=== PATIENT | female | born 1940 | race African-American/Black ===

== ENCOUNTER → 2020-05-24 | Outpatient (CLI) | payer MEDICARE, MEDICAID ==
[~2020-05-24] MED LIST: AMLO10TA80 PO; ASPI-1497 PO; ATOR20TA PO; CLOP75TA4 PO; GABA-529 PO; HYDR-523 PO; LEVO75TA7 PO; MULT-1195 PO; NAPR-681 PO; OMEP20TA2 PO; TAMO20TA4 PO
== END | disposition home or self-care (01) ==
LOC: LAB 12:00
PROVIDERS: ATTEND Obstetrics & Gynecology Obstetrics
DX: Z01.818 Encounter for other preprocedural examination (principal); Z11.59 Encounter for screening for other viral diseases
CPT/HCPCS: C9803; U0003

== ENCOUNTER 2020-05-29 05:47 | Day surgery (SDC) | payer MEDICARE, MEDICAID ==
[~2020-05-29] VITALS: Ht 160 cm; Wt 51.7 kg
[~2020-05-29 05:47] MED LIST changes: +ALBU18HF2 IH; +ALBU2.5V13 IH; +FLUT12AE3 IH; -GABA-529 PO; +GABA300C PO; -HYDR-523 PO; +IPRA3AMP9 HHN; +LEVO100T9 PO; -LEVO75TA7 PO; +MONT10TA21 PO; -MULT-1195 PO; +POTA10CA42 PO; +PRED-276 PO
[2020-05-29] MEDS ORDERED: LACTATED RINGERS 1,000 ML IV SCH (06:30)
[2020-05-29 06:43] LABS: BASOPHILS % 1.3 % (0.0-2.0); EOSINOPHILS % 2.9 % (0.0-5.0); HEMATOCRIT. 37.7 % (36.0-48.0); LYMPHOCYTES % 26.1 % (20.0-50.0); MEAN CORPUSCULAR HEMOGLOBIN 24.7 pg (28.0-32.0); MEAN CORPUSCULAR VOLUME 77.3 fL (81.0-99.0); MEAN PLATELET VOLUME 7.5 fl (7.4-10.4); MONOCYTES % 6.7 % (2.0-8.0); PLATELET 273 x1000/uL (130-400); RED BLOOD CELL COUNT 4.87 mill/uL (4.2-5.4); RED CELL DISTRIBUTION WIDTH 20.6 % (11.6-14.6)
[2020-05-29 06:49] LABS: CHLORIDE 106 mEq/L (98-107)
[2020-05-29 06:54] LABS: PARTIAL THROMBOPLASTIN TIME 26.8 sec (23.4-31.0); PROTHROMBIN TIME 10.4 sec (9.6-11.0)
[2020-05-29] MEDS ORDERED: HYDR-3280 PO (08:18)
[2020-05-29] MEDS ORDERED: FENTANYL CITRATE/PF 50MCG/ML 2ML VIAL ONE (09:16)
[2020-05-29] MEDS ORDERED: ROCURONIUM BROMIDE 10MG/ML VIAL 5ML IV ONE (09:16)
[2020-05-29] MEDS ORDERED: NEOSTIGMINE METHYLSULFATE 1MG/ML 10 ML VIAL ONE (09:16)
[2020-05-29] MEDS ORDERED: PROPOFOL 200MG/20ML VIAL IV ONE (09:17)
[2020-05-29] MEDS ORDERED: GLYCOPYRROLATE 0.2 MG/ML 2ML VIAL ONE (09:17)
[2020-05-29] MEDS ORDERED: CLINDAMYCIN 900 MG PREMIX 50 ML IV ONE (09:19)
[2020-05-29] MEDS ORDERED: ONDANSETRON HCL 4MG/2ML INJ ONE (09:53)
[2020-05-29] MEDS ORDERED: METOCLOPRAMIDE HCL 10MG/2ML VIAL ONE (09:53)
[2020-05-29] MEDS ORDERED: DIPHENHYDRAMINE 50MG/ML VIAL IV PRN (10:15)
[2020-05-29] MEDS ORDERED: FENTANYL CITRATE/PF 50MCG/ML 2ML VIAL IV PRN (10:15)
[2020-05-29] MEDS ORDERED: MEPERIDINE HCL/PF 25MG/ML CPJ IV PRN (10:15)
[2020-05-29] MEDS ORDERED: ACETAMINOPHEN 650MG SUPP PR PRN (10:30)
== END 2020-05-29 12:45 | disposition home or self-care (01) ==
LOC: OR 05:47
PROVIDERS: ATTEND Obstetrics & Gynecology Obstetrics
DX: N95.0 Postmenopausal bleeding (principal); N84.0 Polyp of corpus uteri; N81.4 Uterovaginal prolapse, unspecified; J44.9 Chronic obstructive pulmonary disease, unspecified; I10 Essential (primary) hypertension; E03.9 Hypothyroidism, unspecified; M19.90 Unspecified osteoarthritis, unspecified site; C50.919 Malignant neoplasm of unspecified site of unspecified female breast; Z88.1 Allergy status to other antibiotic agents; Z88.2 Allergy status to sulfonamides; Z88.8 Allergy status to other drugs, medicaments and biological substances; Z79.899 Other long term (current) drug therapy; Z98.890 Other specified postprocedural states
CPT/HCPCS: 36415; 58558; 80048; 85025; 85610; 85730; 88305; J2405; J2704; J2710; J2765; J3010; J3490

== ENCOUNTER → 2021-04-07 | Outpatient (CLI) | payer MEDICARE, MEDICAID ==
[~2021-04-07] MED LIST changes: -ALBU2.5V13 IH; -ATOR20TA PO; -CLOP75TA4 PO; -FLUT12AE3 IH; +HYDR-4350 PO; -MONT10TA21 PO
== END | disposition home or self-care (01) ==
LOC: LAB 10:43
PROVIDERS: ATTEND Obstetrics & Gynecology Obstetrics
DX: Z01.812 Encounter for preprocedural laboratory examination (principal); Z20.822 Contact with and (suspected) exposure to COVID-19
CPT/HCPCS: 87426

== ENCOUNTER → 2021-09-17 | Day surgery (SDC) | payer MEDICARE, MEDICAID ==
[~2021-09-17] VITALS: Ht 157.5 cm; Wt 54.4 kg
[~2021-09-17] MED LIST changes: +LACTATED RINGERS 1,000 ML IV SCH
[2021-09-17 06:46] LABS: BASOPHILS % 0.5 % (0.0-2.0); EOSINOPHILS % 2.2 % (0.0-5.0); HEMOGLOBIN. 12.2 g/dL (12.0-16.0); LYMPHOCYTES % 20.7 % (20.0-50.0); MEAN CORPUSCULAR HEMOGLOBIN 25.7 pg (28.0-32.0); MEAN CORPUSCULAR VOLUME 82.2 fL (81.0-99.0); MEAN PLATELET VOLUME 7.8 fl (7.4-10.4); NEUTROPHILS % 66.6 % (40.0-76.0); PLATELET 378 x1000/uL (130-400); RED BLOOD CELL COUNT 4.74 mill/uL (4.2-5.4); RED CELL DISTRIBUTION WIDTH 16.9 % (11.6-14.6)
[2021-09-17 07:02] LABS: PARTIAL THROMBOPLASTIN TIME 26.9 sec (23.4-31.0); PROTHROMBIN TIME 10.3 sec (9.6-11.0)
== END | disposition home or self-care (01) ==
LOC: OR 05:57
PROVIDERS: ATTEND Obstetrics & Gynecology Obstetrics
DX: N95.0 Postmenopausal bleeding (principal); I10 Essential (primary) hypertension; I25.10 Atherosclerotic heart disease of native coronary artery without angina pectoris; E03.9 Hypothyroidism, unspecified; J44.9 Chronic obstructive pulmonary disease, unspecified; F17.210 Nicotine dependence, cigarettes, uncomplicated; Z79.82 Long term (current) use of aspirin; Z79.899 Other long term (current) drug therapy; Z85.3 Personal history of malignant neoplasm of breast; Z88.1 Allergy status to other antibiotic agents; Z88.2 Allergy status to sulfonamides; Z98.890 Other specified postprocedural states; Z20.822 Contact with and (suspected) exposure to COVID-19
CPT/HCPCS: 36415; 58558; 80048; 85025; 85610; 85730; 87426; 88305; 93005; J0690; J1100; J2250; J2370; J2405; J2704; J3010; J3490

== ENCOUNTER 2022-03-19 16:47 | Inpatient (IN) | payer MEDICARE, MEDICAID ==
[~2022-03-19] VITALS: Ht 160 cm; Wt 63.1 kg
[~2022-03-19 16:47] MED LIST changes: -LACTATED RINGERS 1,000 ML IV SCH; -TAMO20TA4 PO
[2022-03-19 17:54] LABS: BASOPHILS % 1.2 % (0.0-2.0); EOSINOPHILS % 2.4 % (0.0-5.0); HEMATOCRIT. 36.2 % (36.0-48.0); HEMOGLOBIN. 11.1 g/dL (12.0-16.0); MEAN CORPUSCULAR HEMOGLOBIN 25.6 pg (28.0-32.0); MEAN CORPUSCULAR VOLUME 83.8 fL (81.0-99.0); MEAN PLATELET VOLUME 7.7 fl (7.4-10.4); MONOCYTES % 7.4 % (2.0-8.0); PLATELET 409 x1000/uL (130-400); RED BLOOD CELL COUNT 4.31 mill/uL (4.2-5.4); RED CELL DISTRIBUTION WIDTH 18.4 % (11.6-14.6)
[2022-03-19] MEDS ORDERED: ASPIRIN 325MG EC TABLET PO NR (18:00)
[2022-03-19 18:01] LABS: CHLORIDE 108 mEq/L (98-107)
[2022-03-19 18:10] LABS: ETHANOL BLOOD < 10 mg/dL
[2022-03-19] MEDS ORDERED: ENOXAPARIN 60MG/0.6ML SYR SUBCUT NR (18:30)
[2022-03-19] MEDS ORDERED: SODIUM CHLORIDE 0.9% 500 ML IV ONE (19:00)
[2022-03-19 19:11] LABS: BG BASE EXCESS 3.7 mmol/L (-2.0-2.0); BG CARBOXYHEMOGLOBIN 2.5 % (0.5-1.5); BG DEOXYHEMOGLOBIN 4.1 % (0.0-5.0); BG FRACTION INSPIRED OXYGEN 44; BG HCO3 ACT 31.5 mmol/L (22.0-26.0); BG METHEMOGLOBIN 0.3 % (0.0-1.5); BG OXYGEN SATURATION 95.8 % (92.0-98.5); BG OXYHEMOGLOBIN 93.1 % (94.0-97.0); BG PCO2 64.5 mmHg (35.0-45.0); BG PH 7.307 (7.350-7.450); BG PO2 87.5 mmHg (75.0-100.0); BG SAMPLE SITE RIGHT RADIAL; BG TOTAL HEMOGLOBIN 11.6 g/dL (12.0-18.0); BG VENT MODE NASAL CANNULA
[2022-03-19] MEDS ORDERED: IOHEXOL-350 100 ML BOTTLE ONE (19:49)
[2022-03-19] MEDS ORDERED: ALBUTEROL (0.083%) 2.5MG/3ML NEB HHN STA (19:52)
[2022-03-19] MEDS ORDERED: METHYLPREDNISOLONE SOD SUCC 125 MG/2 ML VIAL IV STA (19:52)
[2022-03-19] MEDS ORDERED: IPRATROPIUM BROMIDE (0.02%) 0.5MG/2.5ML NEB HHN STA (19:52)
[2022-03-19] MEDS ORDERED: DOXYCYCLINE HYCLATE 100 MG/VIAL IV ONE (20:00)
[2022-03-19] MEDS ORDERED: MAGNESIUM 2 G PREMIX 50 ML IV ONE ×2 (20:00→23:00)
[2022-03-19] MEDS ORDERED: DOXYCYCLINE 100MG in DEXTROSE 5% WATER 100ML IV NR (20:15)
[2022-03-19 22:42] LABS: BG DEOXYHEMOGLOBIN 6.6 % (0.0-5.0); BG FRACTION INSPIRED OXYGEN 28; BG HCO3 ACT 31.9 mmol/L (22.0-26.0); BG METHEMOGLOBIN 0.3 % (0.0-1.5); BG OXYGEN SATURATION 93.2 % (92.0-98.5); BG OXYHEMOGLOBIN 91.1 % (94.0-97.0); BG PCO2 81.3 mmHg (35.0-45.0); BG PH 7.211 (7.350-7.450); BG PO2 78.1 mmHg (75.0-100.0); BG SAMPLE SITE RIGHT RADIAL; BG TOTAL HEMOGLOBIN 11.7 g/dL (12.0-18.0); BG VENT MODE RESUS BAG
[2022-03-19] MEDS ORDERED: ALBUTEROL (0.083%) 2.5MG/3ML NEB HHN ONE (23:00)
[2022-03-20] VITALS (7 sets, daily range): BP systolic 97–122; BP diastolic 58–66
[2022-03-20] MEDS: AMPICILLIN SOD/SULBACTAM NA 1.5 G in SODIUM CHLORIDE 0.9% 50 ML IV SCH ×2 (01:00→02:00)
[2022-03-20 01:08] LABS: BG BASE EXCESS 2.8 mmol/L (-2.0-2.0); BG CARBOXYHEMOGLOBIN 1.4 % (0.5-1.5); BG DEOXYHEMOGLOBIN 5.7 % (0.0-5.0); BG FRACTION INSPIRED OXYGEN 50; BG HCO3 ACT 31.2 mmol/L (22.0-26.0); BG METHEMOGLOBIN 0.2 % (0.0-1.5); BG OXYGEN SATURATION 94.2 % (92.0-98.5); BG OXYHEMOGLOBIN 92.7 % (94.0-97.0); BG PCO2 68.6 mmHg (35.0-45.0); BG PH 7.275 (7.350-7.450); BG PO2 78.4 mmHg (75.0-100.0); BG SAMPLE SITE RIGHT RADIAL; BG TOTAL HEMOGLOBIN 11.3 g/dL (12.0-18.0); BG VENT MODE MASK - BIPAP
[2022-03-20] MEDS ORDERED: CLONIDINE 0.1MG TABLET PO PRN (10:30)
[2022-03-20] MEDS ORDERED: ONDANSETRON HCL 4MG/2ML INJ IV PRN (10:30)
[2022-03-20] MEDS ORDERED: LORAZEPAM 0.5MG TABLET PO PRN (10:30)
[2022-03-20] MEDS ORDERED: MAGNESIUM/ALUMINUM HYDROXIDE/SIMETHICONE 30ML UDC PO PRN (10:30)
[2022-03-20] MEDS ORDERED: ACETAMINOPHEN 650MG SUPP PR PRN (10:30)
[2022-03-20] MEDS ORDERED: ACETAMINOPHEN 325MG TABLET PO PRN (10:30)
[2022-03-20] MEDS ORDERED: DOCUSATE SODIUM 100MG CAPSULE PO PRN (10:30)
[2022-03-20] MEDS ORDERED: IPRATROPIUM/ALBUTEROL 0.5-3(2.5)MG/3ML NEB NEB PRN (10:30)
[2022-03-20] MEDS ORDERED: GUAIFENESIN 200MG/10ML SUGAR FREE UDC PO PRN (10:30)
[2022-03-20] MEDS ORDERED: DIPHENHYDRAMINE 50MG/ML VIAL IV PRN (10:30)
[2022-03-20] MEDS ORDERED: HYDROCODONE/ACETAMINOPHEN 5/325MG TABLET PO PRN (10:30)
[2022-03-20] MEDS ORDERED: NA PHOS,M-B/NA PHOS,DI-BA ENEMA 118ML PR PRN (10:30)
[2022-03-20 11:32] LABS: BG BASE EXCESS 1.8 mmol/L (-2.0-2.0); BG CARBOXYHEMOGLOBIN 0.6 % (0.5-1.5); BG DEOXYHEMOGLOBIN 2.2 % (0.0-5.0); BG FRACTION INSPIRED OXYGEN 50; BG HCO3 ACT 29.1 mmol/L (22.0-26.0); BG METHEMOGLOBIN 0.2 % (0.0-1.5); BG OXYGEN SATURATION 97.8 % (92.0-98.5); BG PCO2 59.4 mmHg (35.0-45.0); BG PH 7.308 (7.350-7.450); BG SAMPLE SITE RIGHT RADIAL; BG TOTAL HEMOGLOBIN 11.4 g/dL (12.0-18.0); BG VENT MODE MASK - BIPAP
[2022-03-20] MEDS ORDERED: NALOXONE HCL 0.4MG/ML VIAL IV PRN (13:00)
[2022-03-20] MEDS ORDERED: MIRT-111 PO (13:29)
[2022-03-20] MEDS ORDERED: LIP40 PO (13:29)
[2022-03-20] MEDS ORDERED: DYZ PO (13:29)
[2022-03-20] MEDS ORDERED: MEGE40TA5 PO (13:29)
[2022-03-20] MEDS: PIPERACILLIN/TAZOBACTAM 3.375 G in DEXTROSE 5% WATER 50 ML IV SCH ×2 (14:40→21:41)
[2022-03-20] MEDS: FAMOTIDINE 20MG/2ML VIAL IV SCH (14:41)
[2022-03-20] MEDS: METHYLPREDNISOLONE SOD SUCC 40 MG/ML VIAL IV SCH ×2 (14:41→18:13)
[2022-03-20] MEDS: ENOXAPARIN 30MG/0.3ML SYR SUBCUT SCH (14:41)
[2022-03-20] MEDS: IPRATROPIUM/ALBUTEROL 0.5-3(2.5)MG/3ML NEB NEB SCH ×2 (15:52→21:39)
[2022-03-20 20:07] LABS: HEMATOCRIT. 33.5 % (36.0-48.0); HEMOGLOBIN. 10.4 g/dL (12.0-16.0); MEAN CORPUSCULAR HEMOGLOBIN 25.9 pg (28.0-32.0); MEAN PLATELET VOLUME 7.7 fl (7.4-10.4); PLATELET 392 x1000/uL (130-400); RED BLOOD CELL COUNT 4.04 mill/uL (4.2-5.4); RED CELL DISTRIBUTION WIDTH 18.5 % (11.6-14.6)
[2022-03-20 20:14] LABS: PROTHROMBIN TIME 10.8 sec (9.6-11.0)
[2022-03-20 20:22] LABS: CREATINE KINASE MB FRACTION 1.2 ng/mL (0.5-3.6)
[2022-03-20 21:40] LABS: PLATELET ESTIMATE NORMAL
[2022-03-20] MEDS: AMLODIPINE 5MG TABLET PO SCH (21:40)
[2022-03-21] VITALS (10 sets, daily range): BP systolic 104–154; BP diastolic 54–81
[2022-03-21 00:34] LABS: CREATINE KINASE 113 IU/L (26-192); CREATINE KINASE MB FRACTION < 1.0 ng/mL (0.5-3.6)
[2022-03-21] MEDS: METHYLPREDNISOLONE SOD SUCC 40 MG/ML VIAL IV SCH ×3 (02:25→22:01)
[2022-03-21] MEDS: IPRATROPIUM/ALBUTEROL 0.5-3(2.5)MG/3ML NEB NEB SCH ×4 (04:02→20:31)
[2022-03-21] MEDS: PIPERACILLIN/TAZOBACTAM 3.375 G in DEXTROSE 5% WATER 50 ML IV SCH ×3 (05:32→21:55)
[2022-03-21 07:12] LABS: HEMATOCRIT. 34.2 % (36.0-48.0); HEMOGLOBIN. 10.9 g/dL (12.0-16.0); MEAN CORPUSCULAR HEMOGLOBIN 26.2 pg (28.0-32.0); MEAN CORPUSCULAR VOLUME 81.7 fL (81.0-99.0); MEAN PLATELET VOLUME 8.1 fl (7.4-10.4); PLATELET 402 x1000/uL (130-400); RED BLOOD CELL COUNT 4.18 mill/uL (4.2-5.4); RED CELL DISTRIBUTION WIDTH 18.7 % (11.6-14.6)
[2022-03-21 07:45] LABS: CHLORIDE 105 mEq/L (98-107)
[2022-03-21] MEDS: ASPIRIN 81MG EC TABLET PO SCH (08:17)
[2022-03-21] MEDS: AMLODIPINE 5MG TABLET PO SCH ×2 (08:17→21:55)
[2022-03-21] MEDS: FAMOTIDINE 20MG/2ML VIAL IV SCH (08:17)
[2022-03-21 09:44] LABS: BG BASE EXCESS -0.3 mmol/L (-2.0-2.0); BG CARBOXYHEMOGLOBIN 0.3 % (0.5-1.5); BG DEOXYHEMOGLOBIN 7.1 % (0.0-5.0); BG FRACTION INSPIRED OXYGEN 40; BG HCO3 ACT 23.7 mmol/L (22.0-26.0); BG METHEMOGLOBIN 0.3 % (0.0-1.5); BG OXYGEN SATURATION 92.9 % (92.0-98.5); BG OXYHEMOGLOBIN 92.3 % (94.0-97.0); BG PCO2 36.5 mmHg (35.0-45.0); BG PH 7.431 (7.350-7.450); BG PO2 64.1 mmHg (75.0-100.0); BG SAMPLE SITE RIGHT RADIAL; BG TOTAL HEMOGLOBIN 11.7 g/dL (12.0-18.0); BG VENT MODE NASAL CANNULA
[2022-03-21] MEDS: ENOXAPARIN 30MG/0.3ML SYR SUBCUT SCH (10:51)
[2022-03-21] MEDS: LEVOTHYROXINE SODIUM 50MCG TABLET PO SCH (10:52)
[2022-03-21] MEDS: NICOTINE 7MG PATCH TD SCH (11:09)
[2022-03-21 11:12] LABS: T4 FREE 0.56 ng/dL (0.76-1.46)
[2022-03-21 16:02] LABS: NUCLEATED RED BLOOD CELLS 3 /100 WBC
[2022-03-21 16:03] LABS: PLATELET ESTIMATE SLIGHTLY INCREASED
[2022-03-22] VITALS (7 sets, daily range): BP systolic 125–146; BP diastolic 40–73
[2022-03-22] MEDS: IPRATROPIUM/ALBUTEROL 0.5-3(2.5)MG/3ML NEB NEB SCH ×4 (02:32→20:34)
[2022-03-22] MEDS: PIPERACILLIN/TAZOBACTAM 3.375 G in DEXTROSE 5% WATER 50 ML IV SCH ×3 (05:00→20:53)
[2022-03-22] MEDS ORDERED: LIDOCAINE HCL/PF 1% 10 MG/ML 5ML VIAL ONE (08:24)
[2022-03-22] MEDS: LEVOTHYROXINE SODIUM 50MCG TABLET PO SCH (09:15)
[2022-03-22] MEDS: ASPIRIN 81MG EC TABLET PO SCH (09:15)
[2022-03-22] MEDS: AMLODIPINE 5MG TABLET PO SCH ×2 (09:24→20:53)
[2022-03-22] MEDS: NICOTINE 7MG PATCH TD SCH (09:25)
[2022-03-22] MEDS: ENOXAPARIN 30MG/0.3ML SYR SUBCUT SCH (11:11)
[2022-03-22] MEDS: METHYLPREDNISOLONE SOD SUCC 40 MG/ML VIAL IV SCH (11:19)
[2022-03-22] MEDS: FAMOTIDINE 20MG/2ML VIAL IV SCH (11:20)
[2022-03-22 15:28] LABS: BG BASE EXCESS 2.5 mmol/L (-2.0-2.0); BG CARBOXYHEMOGLOBIN 0.5 % (0.5-1.5); BG DEOXYHEMOGLOBIN 7.3 % (0.0-5.0); BG FRACTION INSPIRED OXYGEN 40; BG HCO3 ACT 26.2 mmol/L (22.0-26.0); BG METHEMOGLOBIN 0.3 % (0.0-1.5); BG OXYGEN SATURATION 92.6 % (92.0-98.5); BG OXYHEMOGLOBIN 91.9 % (94.0-97.0); BG PCO2 37.4 mmHg (35.0-45.0); BG PH 7.463 (7.350-7.450); BG PO2 64.5 mmHg (75.0-100.0); BG SAMPLE SITE RIGHT BRACHIAL; BG TOTAL HEMOGLOBIN 12.1 g/dL (12.0-18.0); BG VENT MODE NASAL CANNULA
[2022-03-22 16:30] LABS: HEMATOCRIT. 39.4 % (36.0-48.0); HEMOGLOBIN. 12.2 g/dL (12.0-16.0); MEAN CORPUSCULAR HEMOGLOBIN 25.7 pg (28.0-32.0); MEAN CORPUSCULAR VOLUME 82.9 fL (81.0-99.0); MEAN PLATELET VOLUME 7.9 fl (7.4-10.4); PLATELET 414 x1000/uL (130-400); RED BLOOD CELL COUNT 4.75 mill/uL (4.2-5.4); RED CELL DISTRIBUTION WIDTH 18.4 % (11.6-14.6)
[2022-03-22 18:24] LABS: PLATELET ESTIMATE INCREASED
[2022-03-23] VITALS: BP 119/70
[2022-03-23] MEDS: METHYLPREDNISOLONE SOD SUCC 40 MG/ML VIAL IV SCH ×3 (00:28→21:10)
[2022-03-23] MEDS: IPRATROPIUM/ALBUTEROL 0.5-3(2.5)MG/3ML NEB NEB SCH ×4 (02:00→21:15)
[2022-03-23 04:00] VITALS: BP 135/63
[2022-03-23] MEDS: PIPERACILLIN/TAZOBACTAM 3.375 G in DEXTROSE 5% WATER 50 ML IV SCH ×3 (05:27→21:11)
[2022-03-23 06:46] LABS: HEMOGLOBIN. 11.7 g/dL (12.0-16.0); MEAN CORPUSCULAR HEMOGLOBIN 25.9 pg (28.0-32.0); MEAN CORPUSCULAR VOLUME 79.9 fL (81.0-99.0); PLATELET 412 x1000/uL (130-400)
[2022-03-23] MEDS: LEVOTHYROXINE SODIUM 50MCG TABLET PO SCH (07:30)
[2022-03-23 08:00] VITALS: BP 115/72
[2022-03-23] MEDS: AMLODIPINE 5MG TABLET PO SCH ×2 (08:40→21:11)
[2022-03-23] MEDS: FAMOTIDINE 20MG/2ML VIAL IV SCH (08:40)
[2022-03-23] MEDS: NICOTINE 7MG PATCH TD SCH (08:40)
[2022-03-23] MEDS: ASPIRIN 81MG EC TABLET PO SCH (08:40)
[2022-03-23] MEDS: ENOXAPARIN 30MG/0.3ML SYR SUBCUT SCH (10:54)
[2022-03-23 12:00] VITALS: BP 121/73
[2022-03-23 16:00] VITALS: BP 158/109
[2022-03-23 20:00] VITALS: BP 123/78
[2022-03-24] VITALS: BP 124/70
[2022-03-24] MEDS: IPRATROPIUM/ALBUTEROL 0.5-3(2.5)MG/3ML NEB NEB SCH ×2 (00:53→09:03)
[2022-03-24 04:00] VITALS: BP 132/75
[2022-03-24] MEDS: PIPERACILLIN/TAZOBACTAM 3.375 G in DEXTROSE 5% WATER 50 ML IV SCH (05:40)
[2022-03-24 06:27] LABS: BASOPHILS % 0.1 % (0.0-2.0); HEMATOCRIT. 38.5 % (36.0-48.0); HEMOGLOBIN. 12.2 g/dL (12.0-16.0); LYMPHOCYTES % 7.8 % (20.0-50.0); MEAN CORPUSCULAR HEMOGLOBIN 25.6 pg (28.0-32.0); MEAN CORPUSCULAR VOLUME 80.9 fL (81.0-99.0); MEAN PLATELET VOLUME 7.8 fl (7.4-10.4); MONOCYTES % 6.4 % (2.0-8.0); NEUTROPHILS % 85.7 % (40.0-76.0); PLATELET 407 x1000/uL (130-400); RED BLOOD CELL COUNT 4.75 mill/uL (4.2-5.4); RED CELL DISTRIBUTION WIDTH 18.1 % (11.6-14.6)
[2022-03-24 06:32] LABS: CHLORIDE 106 mEq/L (98-107)
[2022-03-24 08:00] VITALS: BP 130/70
[2022-03-24] MEDS: LEVOTHYROXINE SODIUM 50MCG TABLET PO SCH (08:40)
[2022-03-24] MEDS: ASPIRIN 81MG EC TABLET PO SCH (08:40)
[2022-03-24] MEDS: FAMOTIDINE 20MG/2ML VIAL IV SCH (08:40)
[2022-03-24] MEDS: NICOTINE 7MG PATCH TD SCH (08:40)
[2022-03-24] MEDS: AMLODIPINE 5MG TABLET PO SCH (08:40)
[2022-03-24] MEDS: METHYLPREDNISOLONE SOD SUCC 40 MG/ML VIAL IV SCH (11:24)
[2022-03-24] MEDS: ENOXAPARIN 30MG/0.3ML SYR SUBCUT SCH (11:24)
[2022-03-24 12:00] VITALS: BP 120/77
[2022-03-24 12:35] VITALS: BP 120/77
[2022-03-24 21:38] LABS: PLATELET ESTIMATE INCREASED
[2022-03-25] MEDS ORDERED: ENOXAPARIN 40MG/0.4ML SYR SUBCUT SCH (09:00)
== END 2022-03-24 16:01 | DRG 189 ==
LOC: ER 16:47 → EDBEDREQ 19:38 → EDBEDREQTM 19:38 → EDBEDREQ 20:13 → EDBEDREQTM 20:13 → 5EST 23:50 → EDBEDREQTM 23:53 → EDBEDREQ 23:53 → EDBEDREQSVC 23:53 → ENRESERV 03-20 04:37 → CANRESERV 03-20 04:37 → ENRESERV 03-20 08:28
PROVIDERS: ADMIT Internal Medicine; ATTEND Internal Medicine
PROC: 5A09357 Assistance with Respiratory Ventilation, Less than 24 Consecutive Hours, Continuous Positive Airway Pressure (ICD-10-PCS; principal; 2022-03-20)
PROC: 02HV33Z Insertion of Infusion Device into Superior Vena Cava, Percutaneous Approach (ICD-10-PCS; 2022-03-22)
PROC: B548ZZA Ultrasonography of Superior Vena Cava, Guidance (ICD-10-PCS; 2022-03-22)
DX: J96.02 Acute respiratory failure with hypercapnia (principal); I21.4 Non-ST elevation (NSTEMI) myocardial infarction; G93.41 Metabolic encephalopathy; E87.2 Acidosis; J44.1 Chronic obstructive pulmonary disease with (acute) exacerbation; J84.9 Interstitial pulmonary disease, unspecified; J98.11 Atelectasis; J96.01 Acute respiratory failure with hypoxia; Z20.822 Contact with and (suspected) exposure to COVID-19; E78.5 Hyperlipidemia, unspecified; I10 Essential (primary) hypertension; I27.20 Pulmonary hypertension, unspecified; R32 Unspecified urinary incontinence; R13.10 Dysphagia, unspecified; E03.9 Hypothyroidism, unspecified; E78.00 Pure hypercholesterolemia, unspecified; I73.9 Peripheral vascular disease, unspecified; I25.10 Atherosclerotic heart disease of native coronary artery without angina pectoris; F32.A Depression, unspecified; F17.200 Nicotine dependence, unspecified, uncomplicated; Z79.890 Hormone replacement therapy; Z98.62 Peripheral vascular angioplasty status; Z99.81 Dependence on supplemental oxygen; Z79.82 Long term (current) use of aspirin; Z79.899 Other long term (current) drug therapy; Z88.1 Allergy status to other antibiotic agents; Z85.3 Personal history of malignant neoplasm of breast; Z86.79 Personal history of other diseases of the circulatory system; Z90.12 Acquired absence of left breast and nipple; Z88.2 Allergy status to sulfonamides
CPT/HCPCS: 36415; 36573; 36600; 70496; 70498; 70551; 71045; 71275; 80048; 80053; 80320; 82375; 82550; 82553; 82805; 82962; 83605; 84145; 84439; 84443; 84481; 84484; 85025; 87426; 87804; 93005; 93306; 93970; 94640; 94660; 97162; 99291; C1725; C1893; C9803; J0295; J1650; J2543; J2920; J2930; J3475; J3490; J7060; Q9967; G0480

== ENCOUNTER 2022-06-26 15:33 | Inpatient (IN) | payer MEDICARE, MEDICAID ==
[~2022-06-26] VITALS: Ht 167.6 cm; Wt 62.2 kg
[~2022-06-26 15:33] MED LIST changes: -ALBU18HF2 IH; +DYZ PO; -IPRA3AMP9 HHN; +LIP40 PO; +MEGE40TA5 PO; +MIRT-111 PO; -NAPR-681 PO; -OMEP20TA2 PO; +OMEP20TA23 PO; -POTA10CA42 PO; -PRED-276 PO
[2022-06-26 16:24] LABS: BG BASE EXCESS 8.1 mmol/L (-2.0-2.0); BG CARBOXYHEMOGLOBIN 2.8 % (0.5-1.5); BG DEOXYHEMOGLOBIN 1.7 % (0.0-5.0); BG FRACTION INSPIRED OXYGEN 36; BG HCO3 ACT 37.6 mmol/L (22.0-26.0); BG METHEMOGLOBIN 0.2 % (0.0-1.5); BG OXYGEN SATURATION 98.2 % (92.0-98.5); BG OXYHEMOGLOBIN 95.3 % (94.0-97.0); BG PCO2 82.6 mmHg (35.0-45.0); BG PH 7.276 (7.350-7.450); BG PO2 144.8 mmHg (75.0-100.0); BG SAMPLE SITE RIGHT RADIAL; BG TOTAL HEMOGLOBIN 12.1 g/dL (12.0-18.0); BG VENT MODE NASAL CANNULA
[2022-06-26 16:24] LABS: CHLORIDE 97 mEq/L (98-107)
[2022-06-26 16:29] LABS: BASOPHILS % 0.8 % (0.0-2.0); EOSINOPHILS % 3.1 % (0.0-5.0); HEMATOCRIT. 37.5 % (36.0-48.0); HEMOGLOBIN. 11.8 g/dL (12.0-16.0); LYMPHOCYTES % 25.1 % (20.0-50.0); MEAN CORPUSCULAR VOLUME 88.7 fL (81.0-99.0); MEAN PLATELET VOLUME 7.5 fl (7.4-10.4); MONOCYTES % 8.2 % (2.0-8.0); NEUTROPHILS % 62.8 % (40.0-76.0); PLATELET 311 x1000/uL (130-400); RED BLOOD CELL COUNT 4.22 mill/uL (4.2-5.4)
[2022-06-26] MEDS ORDERED: ALBUTEROL (0.5%) 2.5MG/0.5ML NEB HHN ONE (16:30)
[2022-06-26] MEDS ORDERED: METHYLPREDNISOLONE SOD SUCC 125 MG/2 ML VIAL IV ONE (16:30)
[2022-06-26 16:35] LABS: ETHANOL BLOOD < 10 mg/dL
[2022-06-26 17:07] LABS: *AMPHETAMINES SCREEN URINE NEGATIVE (NEGATIVE); *BARBITURATES SCREEN URINE NEGATIVE (NEGATIVE); *BENZODIAZEPINES SCREEN URINE NEGATIVE (NEGATIVE); *COCAINE SCREEN URINE NEGATIVE (NEGATIVE); CANNABINOID URINE SCREEN NEGATIVE (NEGATIVE); METHADONE URINE SCREEN NEGATIVE (NEGATIVE); OPIATES URINE SCREEN PRESUMTIVE POSITIVE (NEGATIVE); PHENCYCLIDINE URINE SCREEN NEGATIVE (NEGATIVE); PLATELET ESTIMATE NORMAL
[2022-06-26 19:09] LABS: BG BASE EXCESS 8.3 mmol/L (-2.0-2.0); BG CARBOXYHEMOGLOBIN 2.5 % (0.5-1.5); BG DEOXYHEMOGLOBIN 7.7 % (0.0-5.0); BG FRACTION INSPIRED OXYGEN 40; BG METHEMOGLOBIN 0.3 % (0.0-1.5); BG OXYGEN SATURATION 92.1 % (92.0-98.5); BG OXYHEMOGLOBIN 89.5 % (94.0-97.0); BG PCO2 75.1 mmHg (35.0-45.0); BG PO2 70.1 mmHg (75.0-100.0); BG SAMPLE SITE RIGHT RADIAL; BG VENT MODE MASK - BIPAP
[2022-06-26] MEDS ORDERED: AZTREONAM 2 GM in DEXT 5% WATER 100 ML IV SCH (21:00)
[2022-06-26 22:10] VITALS: BP 106/61
[2022-06-26] MEDS ORDERED: ACETAMINOPHEN 325MG TABLET PO PRN (23:30)
[2022-06-27] VITALS (9 sets, daily range): BP systolic 111–168; BP diastolic 51–80
[2022-06-27] MEDS ORDERED: MIRTAZAPINE 30MG TABLET PO SCH
[2022-06-27] MEDS: OMEPRAZOLE 20MG CAPSULE EXTENDED RELEASE PO SCH ×3 (00:15→21:00)
[2022-06-27] MEDS: AZTREONAM 1 G in DEXTROSE 5% WATER 50 ML IV SCH ×3 (03:47→16:25)
[2022-06-27] MEDS: IPRATROPIUM/ALBUTEROL 0.5-3(2.5)MG/3ML NEB HHN SCH ×4 (04:52→20:18)
[2022-06-27] MEDS: GABAPENTIN 300MG CAPSULE PO SCH ×3 (06:09→21:01)
[2022-06-27] MEDS ORDERED: LEVOTHYROXINE SODIUM 100MCG TABLET PO SCH (06:40)
[2022-06-27 08:17] LABS: BASOPHILS % 0.3 % (0.0-2.0); HEMATOCRIT. 35.1 % (36.0-48.0); HEMOGLOBIN. 10.9 g/dL (12.0-16.0); LYMPHOCYTES % 14.1 % (20.0-50.0); MEAN CORPUSCULAR HEMOGLOBIN 27.8 pg (28.0-32.0); MEAN CORPUSCULAR VOLUME 89.4 fL (81.0-99.0); MEAN PLATELET VOLUME 7.8 fl (7.4-10.4); MONOCYTES % 2.6 % (2.0-8.0); PLATELET 275 x1000/uL (130-400); RED BLOOD CELL COUNT 3.92 mill/uL (4.2-5.4); RED CELL DISTRIBUTION WIDTH 22.3 % (11.6-14.6)
[2022-06-27] MEDS: MEGESTROL ACETATE 400 MG/10 ML UDC PO SCH ×2 (08:29→21:00)
[2022-06-27] MEDS: ENOXAPARIN 40MG/0.4ML SYR SUBCUT SCH (08:30)
[2022-06-27] MEDS ORDERED: ASPIRIN 81MG TABLET PO SCH (09:00)
[2022-06-27] MEDS ORDERED: AZTREONAM 1 G in DEXTROSE 5% WATER 50 ML IV SCH (12:15)
[2022-06-27] MEDS: METHYLPREDNISOLONE SOD SUCC 40 MG/ML VIAL IV SCH ×2 (15:13→21:02)
[2022-06-27] MEDS ORDERED: SODIUM POLYSTYRENE SULFONATE 15 G/60 ML BOT PO NR (20:00)
[2022-06-27] MEDS: ATORVASTATIN CALCIUM 40MG TABLET PO SCH (21:01)
[2022-06-27] MEDS: MIRTAZAPINE 15MG TABLET PO SCH (21:01)
[2022-06-28] VITALS (12 sets, daily range): BP systolic 110–135; BP diastolic 53–78
[2022-06-28] MEDS: AZTREONAM 1 G in DEXTROSE 5% WATER 50 ML IV SCH ×4 (00:10→23:13)
[2022-06-28] MEDS: IPRATROPIUM/ALBUTEROL 0.5-3(2.5)MG/3ML NEB HHN SCH ×6 (00:15→20:18)
[2022-06-28] MEDS: METHYLPREDNISOLONE SOD SUCC 40 MG/ML VIAL IV SCH ×3 (05:02→21:44)
[2022-06-28 06:38] LABS: T4 FREE 0.54 ng/dL (0.76-1.46)
[2022-06-28 06:56] LABS: HEMOGLOBIN. 10.5 g/dL (12.0-16.0); MEAN CORPUSCULAR HEMOGLOBIN 27.3 pg (28.0-32.0); MEAN CORPUSCULAR VOLUME 88.8 fL (81.0-99.0); MEAN PLATELET VOLUME 8.1 fl (7.4-10.4); PLATELET 285 x1000/uL (130-400); RED BLOOD CELL COUNT 3.83 mill/uL (4.2-5.4); RED CELL DISTRIBUTION WIDTH 21.5 % (11.6-14.6)
[2022-06-28] MEDS: OMEPRAZOLE 20MG CAPSULE EXTENDED RELEASE PO SCH ×2 (08:36→08:41)
[2022-06-28] MEDS: LEVOTHYROXINE SODIUM 25MCG TABLET PO SCH (08:38)
[2022-06-28] MEDS: ASPIRIN 81MG TABLET PO SCH (08:39)
[2022-06-28] MEDS: ENOXAPARIN 40MG/0.4ML SYR SUBCUT SCH (08:40)
[2022-06-28] MEDS: MEGESTROL ACETATE 400 MG/10 ML UDC PO SCH ×2 (08:41→21:44)
[2022-06-28] MEDS: BUDESONIDE 0.5MG/2ML NEB HHN SCH ×2 (09:47→20:18)
[2022-06-28 11:08] LABS: BG BASE EXCESS 1.9 mmol/L (-2.0-2.0); BG CARBOXYHEMOGLOBIN 0.3 % (0.5-1.5); BG DEOXYHEMOGLOBIN 5.4 % (0.0-5.0); BG FRACTION INSPIRED OXYGEN 50; BG HCO3 ACT 26.7 mmol/L (22.0-26.0); BG METHEMOGLOBIN 0.3 % (0.0-1.5); BG OXYGEN SATURATION 94.6 % (92.0-98.5); BG PCO2 42.8 mmHg (35.0-45.0); BG PH 7.413 (7.350-7.450); BG PO2 75.8 mmHg (75.0-100.0); BG SAMPLE SITE RIGHT BRACHIAL; BG TOTAL HEMOGLOBIN 10.6 g/dL (12.0-18.0); BG VENT MODE MASK - BIPAP
[2022-06-28 14:20] LABS: PLATELET ESTIMATE NORMAL
[2022-06-28] MEDS: ATORVASTATIN CALCIUM 40MG TABLET PO SCH (21:44)
[2022-06-28] MEDS: MIRTAZAPINE 15MG TABLET PO SCH (21:44)
[2022-06-29] VITALS (12 sets, daily range): BP systolic 121–144; BP diastolic 56–74
[2022-06-29] MEDS: IPRATROPIUM/ALBUTEROL 0.5-3(2.5)MG/3ML NEB HHN SCH ×6 (00:12→20:34)
[2022-06-29 06:14] LABS: CHLORIDE 100 mEq/L (98-107)
[2022-06-29] MEDS: METHYLPREDNISOLONE SOD SUCC 40 MG/ML VIAL IV SCH ×3 (06:14→21:03)
[2022-06-29] MEDS: OMEPRAZOLE 20MG CAPSULE EXTENDED RELEASE PO SCH (06:15)
[2022-06-29] MEDS: LEVOTHYROXINE SODIUM 25MCG TABLET PO SCH (06:19)
[2022-06-29 06:22] LABS: HEMATOCRIT. 32.1 % (36.0-48.0); HEMOGLOBIN. 10.1 g/dL (12.0-16.0); MEAN CORPUSCULAR HEMOGLOBIN 27.4 pg (28.0-32.0); MEAN CORPUSCULAR VOLUME 87.6 fL (81.0-99.0); MEAN PLATELET VOLUME 8.1 fl (7.4-10.4); PLATELET 296 x1000/uL (130-400); RED BLOOD CELL COUNT 3.67 mill/uL (4.2-5.4); RED CELL DISTRIBUTION WIDTH 21.6 % (11.6-14.6)
[2022-06-29] MEDS: AZTREONAM 1 G in DEXTROSE 5% WATER 50 ML IV SCH ×2 (08:52→15:52)
[2022-06-29] MEDS: FAMOTIDINE 20MG TABLET PO SCH (08:53)
[2022-06-29] MEDS: MEGESTROL ACETATE 400 MG/10 ML UDC PO SCH ×2 (08:53→21:02)
[2022-06-29] MEDS: ENOXAPARIN 30MG/0.3ML SYR SUBCUT SCH (08:54)
[2022-06-29] MEDS: BUDESONIDE 0.5MG/2ML NEB HHN SCH ×2 (09:00→20:34)
[2022-06-29] MEDS: ASPIRIN 81MG TABLET PO SCH (09:12)
[2022-06-29 13:15] LABS: PLATELET ESTIMATE NORMAL
[2022-06-29] MEDS: ATORVASTATIN CALCIUM 40MG TABLET PO SCH (21:03)
[2022-06-29] MEDS: MIRTAZAPINE 15MG TABLET PO SCH (21:03)
[2022-06-30] VITALS (10 sets, daily range): BP systolic 118–149; BP diastolic 64–88
[2022-06-30] MEDS: IPRATROPIUM/ALBUTEROL 0.5-3(2.5)MG/3ML NEB HHN SCH ×5 (00:07→15:48)
[2022-06-30] MEDS: AZTREONAM 1 G in DEXTROSE 5% WATER 50 ML IV SCH ×3 (00:20→16:07)
[2022-06-30] MEDS: METHYLPREDNISOLONE SOD SUCC 40 MG/ML VIAL IV SCH ×2 (05:42→15:03)
[2022-06-30] MEDS: FAMOTIDINE 20MG TABLET PO SCH (08:09)
[2022-06-30] MEDS: ASPIRIN 81MG TABLET PO SCH (08:09)
[2022-06-30] MEDS: ENOXAPARIN 30MG/0.3ML SYR SUBCUT SCH (08:10)
[2022-06-30] MEDS: LEVOTHYROXINE SODIUM 25MCG TABLET PO SCH (08:17)
[2022-06-30] MEDS: MEGESTROL ACETATE 400 MG/10 ML UDC PO SCH (08:20)
[2022-06-30] MEDS: BUDESONIDE 0.5MG/2ML NEB HHN SCH (09:23)
== END 2022-06-30 19:51 | disposition home or self-care (01) | DRG 193 ==
LOC: ER 15:33 → 7EST 19:58 → EDBEDREQTM 20:04 → EDBEDREQ 20:04 → ENRESERV 20:37 → 5EST 06-27 12:25
PROVIDERS: ADMIT Internal Medicine; ATTEND Internal Medicine
PROC: 5A09357 Assistance with Respiratory Ventilation, Less than 24 Consecutive Hours, Continuous Positive Airway Pressure (ICD-10-PCS; principal; 2022-06-26)
PROC: 5A09357 Assistance with Respiratory Ventilation, Less than 24 Consecutive Hours, Continuous Positive Airway Pressure (ICD-10-PCS; 2022-06-27)
PROC: 5A09357 Assistance with Respiratory Ventilation, Less than 24 Consecutive Hours, Continuous Positive Airway Pressure (ICD-10-PCS; 2022-06-28)
PROC: 5A09357 Assistance with Respiratory Ventilation, Less than 24 Consecutive Hours, Continuous Positive Airway Pressure (ICD-10-PCS; 2022-06-29)
DX: J18.9 Pneumonia, unspecified organism (principal); J96.02 Acute respiratory failure with hypercapnia; J44.0 Chronic obstructive pulmonary disease with (acute) lower respiratory infection; E87.1 Hypo-osmolality and hyponatremia; Z20.822 Contact with and (suspected) exposure to COVID-19; I10 Essential (primary) hypertension; E87.5 Hyperkalemia; E03.9 Hypothyroidism, unspecified; E78.00 Pure hypercholesterolemia, unspecified; J44.9 Chronic obstructive pulmonary disease, unspecified; F32.A Depression, unspecified; F17.210 Nicotine dependence, cigarettes, uncomplicated; Z85.3 Personal history of malignant neoplasm of breast; Z88.2 Allergy status to sulfonamides; Z88.8 Allergy status to other drugs, medicaments and biological substances; Z79.899 Other long term (current) drug therapy; Z90.10 Acquired absence of unspecified breast and nipple; Z99.81 Dependence on supplemental oxygen
CPT/HCPCS: 36415; 36600; 71045; 80048; 80053; 80305; 80320; 82375; 82805; 82962; 83880; 84439; 84443; 85025; 87426; 93005; 94640; 94660; 99291; J1650; J2920; J2930; J3490; J7060; J7626; A4315; G0480